=== PATIENT | male | born 1995 | race Native Hawaiian/Other Pacific Islander ===

== ENCOUNTER 2021-10-13 17:08 | Outpatient (CLI) | payer BC ==
[2021-10-13 17:50] LABS: POTASSIUM 4.3 mmol/L (3.6-5.2)
== END 2021-10-13 20:23 | disposition home or self-care (01) ==
LOC: LABW 17:08
PROVIDERS: ATTEND Nurse Practitioner Primary Care
DX: M25.561 Pain in right knee (principal); M25.562 Pain in left knee
CPT/HCPCS: 36415; 80069; 84550; 85652; 86038; 86140

== ENCOUNTER 2021-10-16 14:01 | Outpatient (CLI) | payer BC | END 2021-10-16 18:59 | disposition home or self-care (01) | LOC: LAB 14:01 | PROVIDERS: ATTEND Nurse Practitioner Primary Care | DX: M25.561 Pain in right knee (principal); M25.562 Pain in left knee | CPT/HCPCS: 86430 ==